=== PATIENT | female | born 1975 | race Caucasian/White ===

== ENCOUNTER → 2016-12-05 | Outpatient (CLI) | payer BC | LOC: BRMIMAGING 14:28 | PROVIDERS: ATTEND Physician Assistant Medical | DX: D25.0 Submucous leiomyoma of uterus (principal); D25.2 Subserosal leiomyoma of uterus; N92.1 Excessive and frequent menstruation with irregular cycle; Z30.431 Encounter for routine checking of intrauterine contraceptive device | CPT/HCPCS: 76856-PO ==

== ENCOUNTER → 2018-11-29 | Outpatient (CLI) | payer BC | LOC: BRMIMAGING 13:05 | PROVIDERS: ATTEND Physician Assistant Medical | DX: Z12.31 Encounter for screening mammogram for malignant neoplasm of breast (principal) ==